=== PATIENT | female | born 1985 | race Caucasian/White ===

== ENCOUNTER → 2016-11-15 | Emergency (ER) | payer OTHER ==
[~2016-11-15] MED LIST: KETOROLAC TROMETHAMINE 15 MG/ML VIAL IVPUSH ONE; KETOROLAC TROMETHAMINE 15 MG/ML VIAL ONE; ONDANSETRON 4 MG/2 ML VIAL IVPUSH ONE; ONDANSETRON 4 MG/2 ML VIAL ONE; SODIUM CHLORIDE 1,000 ML IV STA
[2016-11-15 19:27] VITALS: BP 114/69; PULSE 89; TEMP 99.1; BMI 33.2
--- NOTE | 2016-11-15 20:11 | PDOC ---
Attending Attestation - Resident Resident Name: Hiren Medeiros - ED Attending Attestation I have performed the following: I have examined & evaluated the patient, The case was reviewed & discussed with the resident, I agree w/resident's findings & plan, Exceptions are as noted - HPI HPI: 11/16/16 00:09 The patient is a 31 year old female with significant past medical history of asthma and cholecystectomy who presents to the ED for epigastric pain, nausea and vomiting since 8am. Patient reports having 9 episodes of nonbloody vomiting. Denies diarrhea. States she tried pepto-bismol with no improvement. Patient reports her daughter was also ill with similar symptoms a few days ago and is now feeling better. The patient denies fever, chills, diaphoresis, cough, SOB, chest pain, and palpitations. PCP: Dr. Barrera - Physicial Exam PE: 11/16/16 00:09 GENERAL: Well-appearing, well-nourished. No apparent distress. HEENT: Normocephalic, atraumatic. PERRL, EOM intact. CARDIOVASCULAR: Normal S1, S2. Regular rate and rhythm. PULMONARY: Clear to auscultation bilaterally. ABDOMEN: Soft, non-distended, non-tender. EXTREMITIES: Normal ROM in all four extremities. No gross deformities. SKIN: Warm, dry. No rash NEUROLOGICAL: No focal neurological deficits. Discharge Disposition - Prescriptions Prescriptions: Ondansetron [Zofran *Odt*] 8 mg SL PRN #7 od.tablet Medical Decision Making - Medical Decision Making 11/16/16 00:10 Documentation prepared by Gillian Cotter, acting as durable medical equipment repairer for Popeye Cabello MD/.
--- NOTE | 2016-11-15 20:51 | PDOC ---
History of Present Illness - General Chief Complaint: Nausea/Vomiting Stated Complaint: Nausea/Vomiting/ABD PAIN Time Seen by Provider: 11/15/16 20:08 History Source: Patient Exam Limitations: No Limitations - History of Present Illness Initial Comments: 11/15/16 20:37 31F with pmh of cholecystectomy 5yrs ago presents to the ed with 9 episodes of vomiting and epigastric pain since 8am. Pt's daughter had a similar presentation 3 days ago and feels better now. Pt tried pepto-bismol that she promptly regurgitated. Denies blood in vomitus, rash, diarrhea, dysuria Associated Symptoms: denies: chest pain, cough, diaphoresis, malaise, rash, seizure, shortness of breath, syncope Aspirin Received prior to arrival: Yes: no aspirin today Past History - Past Medical History Allergies/Adverse Reactions: Allergies Allergy/AdvReac Type Severity Reaction Status Date / Time No Known Allergies Allergy Verified 11/15/16 19:27 Home Medications: Ambulatory Orders Albuterol Sulfate Inhaler - [Ventolin Hfa Inhaler -] 2 inh PO Q4H PRN 11/15/16 Asthma: Yes - Surgical History Cholecystectomy: Yes - Psycho/Social/Smoking Cessation Hx Suicidal Ideation: No Smoking History: Never smoked Review of Systems - Review of Systems Is the patient limited Turkish proficient: No Constitutional: Yes: Chills. No: Diaphoresis, Malaise, Night Sweats HEENTM: No: Symptoms Reported, Throat Pain, Difficulty Swallowing Respiratory: No: Cough, Shortness of Breath, Wheezing Cardiac (ROS): No: Chest Pain, Edema, Palpitations, Syncope, Chest Tightness ABD/GI: No: Abd. Pain w/ defecation, Blood Streaked Bowels, Constipated, Diarrhea, Difficulty Swallowing, Abdominal cramping (URQ pain from repeated retching) : No: Burning, Dysuria, Hematuria, Incontinence, Pain Integumentary: No: Bruising, Erythema, Pruritus, Rash Neurological: No: Headache *Physical Exam - Vital Signs Last Vital Signs Temp Pulse Resp BP Pulse Ox 99.1 F 89 18 114/69 99 11/15/16 19:24 11/15/16 19:24 11/15/16 19:24 11/15/16 19:24 11/15/16 19:24 - Physical Exam General Appearance: Yes: Nourished, Appropriately Dressed. No: Apparent Distress HEENT: positive: EOMI, MARGARITA, Normal ENT Inspection, Pharynx Normal. negative: Pale Conjunctivae Respiratory/Chest: positive: Chest Tender, Lungs Clear, Normal Breath Sounds. negative: Respiratory Distress, Rales, Rhonchi, Stridor, Wheezing Cardiovascular: positive: Regular Rhythm, Regular Rate, S1, S2. negative: Bradycardia, Tachycardia Vascular Pulses: Carotid (R): 2+, Carotid (L): 2+, Dorsalis-Pedis (R): 2+, Doralis-Pedis (L): 2+ Gastrointestinal/Abdominal: positive: Soft (Surgical scar on URQ, Epigastric tenderness.), Decreased BS, Protuberent, Rebound, Tenderness. negative: Guarding Musculoskeletal: positive: Normal Inspection Extremity: positive: Normal Capillary Refill Integumentary: positive: Normal Color, Dry, Warm. negative: Pale, Cold, Clammy , Rash, Swelling Neurologic: positive: Fully Oriented, Alert, Normal Mood/Affect, Motor Strength 5/5 Medical Decision Making - Medical Decision Making 11/15/16 20:59 31yo F with epigastric pain and vomiting since 8am, Considering viral illness, especially since daughter had similar symptoms. Ordered IV NS, Zofran, ketorolac, CBC and CMP, as well as a urinalysis and test.
[2016-11-15 21:36] LABS: BASOPHIL 0.1 % (0-2.0); EOSINOPHIL 0.7 % (0-4.5); MCH 29.4 pg (25.7-33.7); MCHC 33.7 g/dl (32.0-36.0); MEAN CELL VOLUME 87.2 fl (80-96); MEAN PLT VOLUME 10.2 fl (7.5-11.1); NEUTROPHILS 90.7 % (42.8-82.8); PLATELET COUNT 116 K/MM3 (134-434); RDW 13.2 % (11.6-15.6); WHITE BLOOD COUNT 8.3 K/mm3 (4.0-10.0)
[2016-11-15 21:43] LABS: URINE APPEARANCE CLEAR; URINE BILIRUBIN NEGATIVE (NEGATIVE); URINE BLOOD NEGATIVE (NEGATIVE); URINE COLOR YELLOW; URINE GLUCOSE (UA) NEGATIVE (NEGATIVE); URINE KETONE 2+ (NEGATIVE); URINE NITRITE NEGATIVE (NEGATIVE); URINE PROTEIN NEGATIVE (NEGATIVE); URINE UROBILINOGEN 4.0 E.U/dl E.U./dl (0.2-1.0)
[2016-11-15 21:50] LABS: URINE LEUK ESTERASE 1+ (NEGATIVE)
[2016-11-15 21:52] LABS: URINE MUCUS RARE; URINE RBC 4 /hpf (0-3); URINE WBC 4 /hpf (3-5)
== END | disposition home or self-care (01) ==
LOC: JER 19:12
PROC: 3E0333Z Introduction of Anti-inflammatory into Peripheral Vein, Percutaneous Approach (ICD-10-PCS; principal; 2016-11-15)
PROC: 3E033GC Introduction of Other Therapeutic Substance into Peripheral Vein, Percutaneous Approach (ICD-10-PCS; 2016-11-15)
DX: R10.13 Epigastric pain (principal); R11.2 Nausea with vomiting, unspecified
CPT/HCPCS: 36415; 81003; 81015; 84703; 85025; 96374; 96375; 99282-25

== ENCOUNTER 2017-06-30 18:52 | Emergency (ER) | payer OTHER ==
[2017-06-30] MEDS ORDERED: ALBUTEROL SO4 2.5/IPRATROPIUM 0.5 INH SOL 3 ML VIAL.NEB. NEB ONE ×3 (19:02→20:05)
[2017-06-30 19:03] VITALS: BP 134/81; PULSE 94; TEMP 99.8; BMI 33.2
--- NOTE | 2017-06-30 19:04 | PDOC ---
Rapid Medical Evaluation Time Seen by Provider: 06/30/17 18:59 Medical Evaluation: Allergies Allergy/AdvReac Type Severity Reaction Status Date / Time No Known Allergies Allergy Verified 11/15/16 19:27 06/30/17 18:59 The patient presents with a chief complaint of: Difficulty breathing, states that it feels like an asthma exacerbation. (+) non-productive cough. She has been hospitalized for her asthma but never been intubated. I have performed a brief in-person evaluation of this patient; Pertinent physical exam findings: ambulatory, speaking in full sentences. Lungs with course lung sounds b/l. RRR I have ordered the following: Duoneb, CXR The patient will proceed to the ED for further evaluation.
--- NOTE | 2017-06-30 19:39 | PDOC ---
History of Present Illness - General Chief Complaint: Respiratory Stated Complaint: ASTHMA Time Seen by Provider: 06/30/17 18:59 History Source: Patient Exam Limitations: No Limitations - History of Present Illness Initial Comments: 06/30/17 19:35 31 yr female with with history of asthma presents with cough chest tight since yesterday no fever. no vomiting. history of asthma no intubations. Past History - Past Medical History Allergies/Adverse Reactions: Allergies Allergy/AdvReac Type Severity Reaction Status Date / Time No Known Allergies Allergy Verified 06/30/17 18:59 Home Medications: Ambulatory Orders Prednisone [Deltasone] 40 mg PO DAILY #8 tablet 06/30/17 Asthma: Yes COPD: No - Surgical History Cholecystectomy: Yes - Suicide/Smoking/Psychosocial Hx Smoking History: Never smoked *Physical Exam - Vital Signs Last Vital Signs Temp Pulse Resp BP Pulse Ox 99.8 F H 94 H 19 134/81 97 06/30/17 19:00 06/30/17 19:00 06/30/17 19:00 06/30/17 19:00 06/30/17 19:00 - Physical Exam General Appearance: Yes: Nourished, Appropriately Dressed HEENT: positive: EOMI, MARGARITA, Normal ENT Inspection, TMs Normal, Pharynx Normal Neck: positive: Supple Respiratory/Chest: positive: Lungs Clear, Normal Breath Sounds, Decreased Breath Sounds. negative: Chest Tender Cardiovascular: positive: Regular Rhythm, Regular Rate Gastrointestinal/Abdominal: positive: Normal Bowel Sounds, Soft Musculoskeletal: positive: Normal Inspection Extremity: positive: Normal Capillary Refill, Normal Inspection, Normal Range of Motion Integumentary: positive: Normal Color, Dry, Warm Neurologic: positive: Fully Oriented, Alert, Normal Mood/Affect, Normal Response , Motor Strength 5/5 ED Treatment Course - ADDITIONAL ORDERS Additional order review: Laboratory Results 06/30/17 19:07 Urine HCG, Qual Negative - RADIOLOGY Radiograph Interpretation: 06/30/17 20:13 wet read is negative for infiltrate - Medications Given in the ED: ED Medications Discontinued Medications Generic Name Dose Route Start Last Admin Trade Name Freq PRN Reason Stop Dose Admin Albuterol/Ipratropium 1 amp 06/30/17 19:02 06/30/17 19:35 Duoneb - NEB 06/30/17 19:03 1 amp ONCE ONE Administration Medical Decision Making - Medical Decision Making 06/30/17 19:37 cc: cough for 2 days no fever no chills no vomiting uses inhaler at home no resp distress. 06/30/17 20:04 will give prednisone, duoneb tylenol CXR *DC/Admit/Observation/Transfer Diagnosis at time of Disposition: Asthma attack Qualifiers: Asthma severity: mild Asthma persistence: intermittent Qualified Code(s): J45.21 - Mild intermittent asthma with (acute) exacerbation - Discharge Dispostion Disposition: HOME Condition at time of disposition: Good - Prescriptions Prescriptions: Prednisone [Deltasone] 40 mg PO DAILY #8 tablet - Referrals - Patient Instructions Additional Instructions: follow with your doctor in 2-3 days use the inhaler as directed take tylenol 650mg every 4hrs for fever as needed next dose of prednisone tomorrow morning also take any over the counter antihistamine such as zyrtec, claritin or kg daily to help with any sneezing nasal congestion return to ER for any worsening symptoms - Post Discharge Activity
[2017-06-30] MEDS ORDERED: predniSONE 20 MG TABLET (UD) PO ONE (19:42)
[2017-06-30] MEDS ORDERED: ACETAMINOPHEN 325 MG TABLET (FP) PO ONE (19:42)
[2017-06-30] MEDS ORDERED: ACETAMINOPHEN 325 MG TABLET (FP) ONE (19:46)
[2017-06-30] MEDS ORDERED: predniSONE 20 MG TABLET (UD) ONE (19:47)
== END 2017-06-30 21:13 | disposition home or self-care (01) ==
LOC: JERFT 18:52
PROC: 3E0F7GC Introduction of Other Therapeutic Substance into Respiratory Tract, Via Natural or Artificial Opening (ICD-10-PCS; principal; 2017-06-30)
PROC: 3E0F7GC Introduction of Other Therapeutic Substance into Respiratory Tract, Via Natural or Artificial Opening (ICD-10-PCS; 2017-06-30)
DX: J45.21 Mild intermittent asthma with (acute) exacerbation (principal)
CPT/HCPCS: 71046-TC-FY; 84703; 99281-25

== ENCOUNTER 2018-04-06 18:33 | Emergency (ER) | payer OTHER ==
[2018-04-06 18:57] VITALS: BP 114/70; PULSE 89; TEMP 98.3; BMI 32.8
[2018-04-06] MEDS ORDERED: ALBUTEROL SO4 2.5/IPRATROPIUM 0.5 INH SOL 3 ML VIAL.NEB. NEB ONE ×4 (18:57→20:57)
--- NOTE | 2018-04-06 18:59 | PDOC ---
Rapid Medical Evaluation Chief Complaint: Shortness of Breath Time Seen by Provider: 04/06/18 18:57 Medical Evaluation: Allergies Allergy/AdvReac Type Severity Reaction Status Date / Time No Known Allergies Allergy Verified 06/30/17 18:59 Vital Signs Temp Pulse Resp BP Pulse Ox 98.3 F 89 16 114/70 100 04/06/18 18:55 04/06/18 18:55 04/06/18 18:55 04/06/18 18:55 04/06/18 18:55 04/06/18 18:57 I have performed a brief in-person evaluation of this patient. The patient presents with a chief complaint of: 18wks with complains of cough, nasal congestion and SOB since yesterday,. report h/o Asthma Pertinent physical exam findings: no acute respiratory distress. heart RRR. lungs CTAB I have ordered the following: duoneb The patient will proceed to the ED for further evaluation Discharge Disposition - Diagnosis SOB (shortness of breath) Acute asthma exacerbation Qualifiers: Asthma severity: mild Asthma persistence: intermittent Qualified Code(s): J45.21 - Mild intermittent asthma with (acute) exacerbation - Referrals - Patient Instructions - Post Discharge Activity
[2018-04-06] MEDS ORDERED: predniSONE 20 MG TABLET (UD) PO ONE (20:08)
[2018-04-06] MEDS ORDERED: predniSONE 20 MG TABLET (UD) ONE (20:28)
--- NOTE | 2018-04-06 21:06 | PDOC ---
History of Present Illness - General Chief Complaint: Shortness of Breath Stated Complaint: SHORTNESS OF BREATH/18 WKS Time Seen by Provider: 04/06/18 18:57 History Source: Patient Exam Limitations: No Limitations - History of Present Illness Initial Comments: 32 y/o F hx of asthma (hospitalized once, never intubated) , currently 18 weeks , LNMP 12/02/17, presents with SOB, chest tightness and mild dry cough from yesterday. Mentions sxs feel like her asthma. Tried using her Albuterol inhaler without much improvement in sxs. Denies fever, chills, body aches, abd pain, diarrhea, vaginal bleeding. Has occasional emesis which is typical for her . Denies recent travel. 04/06/18 21:00 Past History - Past Medical History Allergies/Adverse Reactions: Allergies Allergy/AdvReac Type Severity Reaction Status Date / Time No Known Allergies Allergy Verified 06/30/17 18:59 Home Medications: Ambulatory Orders Prednisone [Deltasone] 40 mg PO DAILY #8 tablet 06/30/17 Prednisone [Deltasone] 40 mg PO DAILY #8 tablet 04/06/18 Asthma: Yes COPD: No - Surgical History Cholecystectomy: Yes - Immunization History Immunization Up to Date: Yes - Suicide/Smoking/Psychosocial Hx Smoking History: Never smoked Hx Alcohol Use: No Drug/Substance Use Hx: No Substance Use Type: None Review of Systems - Review of Systems Comments:: see hpi 04/06/18 21:04 *Physical Exam - Vital Signs Last Vital Signs Temp Pulse Resp BP Pulse Ox 98.3 F 89 16 114/70 100 04/06/18 18:55 04/06/18 18:55 04/06/18 18:55 04/06/18 18:55 04/06/18 18:55 - Physical Exam General Appearance: Yes: Nourished Respiratory/Chest: positive: Lungs Clear, Normal Breath Sounds. negative: Respiratory Distress, Crackles, Rales, Rhonchi, Stridor, Wheezing Cardiovascular: positive: Regular Rhythm, Regular Rate, S1, S2. negative: Murmur Gastrointestinal/Abdominal: positive: Normal Bowel Sounds, Soft. negative: Tender, Distended, Guarding, Rebound Extremity: positive: Normal Inspection. negative: Pedal Edema, Calf Tenderness Neurologic: positive: Fully Oriented, Alert, Normal Mood/Affect Moderate Sedation - Procedure Monitoring Vital Signs: Procedure Monitoring Vital Signs Temperature 98.3 F 04/06/18 18:55 Pulse Rate 89 04/06/18 18:55 Respiratory Rate 16 04/06/18 18:55 Blood Pressure 114/70 04/06/18 18:55 O2 Sat by Pulse Oximetry (%) 100 04/06/18 18:55 ED Treatment Course - Medications Given in the ED: ED Medications Discontinued Medications Generic Name Dose Route Start Last Admin Trade Name Fahad PRN Reason Stop Dose Admin Albuterol/Ipratropium 1 amp 04/06/18 18:57 04/06/18 20:31 Duoneb - NEB 04/06/18 18:58 1 amp ONCE ONE Administration Prednisone 40 mg 04/06/18 20:08 04/06/18 20:32 Deltasone - PO 04/06/18 20:09 40 mg ONCE ONE Administration Medical Decision Making - Medical Decision Making 32 y/o F currently 18 weeks hx of asthma presents with mild asthma exacerbation. Lungs were clear prior to receiving treatment Patient was given duonebs x2 and Prednisone 40 mg. On reassessment, patient feeling improved. Bedside ultrasound shows IUP with heart tone noted (at 154 bpm). Stable for d/c 04/06/18 21:04 *DC/Admit/Observation/Transfer Diagnosis at time of Disposition: SOB (shortness of breath) Acute asthma exacerbation Qualifiers: Asthma severity: mild Asthma persistence: intermittent Qualified Code(s): J45.21 - Mild intermittent asthma with (acute) exacerbation - Discharge Dispostion Disposition: HOME Condition at time of disposition: Improved Decision to Admit order: No - Prescriptions Prescriptions: Prednisone [Deltasone] 40 mg PO DAILY #8 tablet - Referrals Referrals: Quinton Gross MD [Primary Care Provider] - 3 days - Patient Instructions Printed Discharge Instructions: DI for Asthma -- Adult Additional Instructions: Thank you for choosing [facility]. It was a pleasure taking care of you. You were seen here for asthma Take your Albuterol inhaler as needed for wheezing/shortness of breath Take the Prednisone daily as prescribed Return to the Emergency Department if your symptoms worsen or persist, you have fever, shortness of breath, chest pain, severe abdominal pain, vomiting, vaginal bleeding or other concerning symptoms. - Post Discharge Activity
== END 2018-04-06 21:20 | disposition home or self-care (01) ==
LOC: JER 18:33
PROC: 3E0F7GC Introduction of Other Therapeutic Substance into Respiratory Tract, Via Natural or Artificial Opening (ICD-10-PCS; principal; 2018-04-06)
PROC: 3E0F7GC Introduction of Other Therapeutic Substance into Respiratory Tract, Via Natural or Artificial Opening (ICD-10-PCS; 2018-04-06)
DX: O26.892 Other specified pregnancy related conditions, second trimester (principal); O99.512 Diseases of the respiratory system complicating pregnancy, second trimester; J45.21 Mild intermittent asthma with (acute) exacerbation; Z3A.18 18 weeks gestation of pregnancy
CPT/HCPCS: 99281-25; 99282-25

== ENCOUNTER 2018-09-23 23:09 | Emergency (ER) | payer OTHER ==
[2018-09-23 23:51] VITALS: PULSE 84; TEMP 97.4
--- NOTE | 2018-09-24 01:02 | PDOC ---
History of Present Illness - General Chief Complaint: Pain Stated Complaint: VAGINAL PAIN Time Seen by Provider: 09/23/18 23:09 History Source: Patient Exam Limitations: No Limitations - History of Present Illness Travel History: No Initial Comments: 09/24/18 01:04 HISTORY OF PRESENT ILLNESS: 32-year-old woman A1 who is 3 weeks status post vaginal delivery and IUD placement. Patient felt that her IUD strings were visible at her vaginal opening. Patient called the clinic with the IUD was placed and she was referred to the emergency department for evaluation. Patient reports having some vaginal pain and some dark red vaginal bleeding. She denies fevers, chills, dysuria, hematuria, rectal bleeding. No recent travel or sick contacts. PAST MEDICAL HISTORY: Denies past medical history SURGICAL HISTORY: Denies ALLERGIES: No known drug allergies REVIEW OF SYSTEMS General/Constitutional: Denies fever or chills. Denies weakness, weight change. HEENT: Denies change in vision. Denies ear pain or discharge. Denies sore throat. Cardiovascular: Denies chest pain or shortness of breath. Respiratory: Denies cough, wheezing, or hemoptysis. Gastrointestinal: Denies nausea, vomiting, diarrhea or constipation. Denies rectal bleeding. Genitourinary: Denies dysuria, frequency, or change in urination. Musculoskeletal: Denies joint or muscle swelling or pain. Denies neck or back pain. Skin and breasts: Denies rash or easy bruising. Neurologic: Denies headache, vertigo, loss of consciousness, or loss of sensation. Psychiatric: Denies depression or anxiety. Endocrine: Denies increased thirst. Denies abnormal weight change. Hematologic/Lymphatic: Denies anemia, easy bleeding, or history of blood clots. Allergic/Immunologic: Denies hives or skin allergy. Denies latex allergy. PHYSICAL EXAM General Appearance: Well-appearing, appropriately dressed. No apparent distress , no intoxication. Respiratory/Chest: Lungs CTAB. No shortness of breath, chest tenderness, respiratory distress, accessory muscle use. No crackles, rales, rhonchi, stridor , wheezing, dullness Cardiovascular: RRR. S1, S2. No JVD, murmur, bradycardia, tachycardia. Vascular Pulses: Dorsalis-Pedis (R): 2+, Dorsalis-Pedis (L): 2+ Gastrointestinal/Abdominal: Normal bowel sounds. Abdomen soft, non-distended. No tenderness or rebound tenderness. No organomegaly, pulsatile mass, guarding, hernia, hepatomegaly, splenomegaly. Lymphatic: No adenopathy, tenderness. Past History - Past Medical History Allergies/Adverse Reactions: Allergies Allergy/AdvReac Type Severity Reaction Status Date / Time No Known Allergies Allergy Verified 09/23/18 23:47 Home Medications: Ambulatory Orders Prednisone [Deltasone] 40 mg PO DAILY #8 tablet 04/06/18 Asthma: Yes COPD: No - Surgical History Cholecystectomy: Yes - Reproductive History (#): 3 Para: 2 - Immunization History Immunization Up to Date: Yes - Suicide/Smoking/Psychosocial Hx Smoking History: Unknown if ever smoked Information on smoking cessation initiated: No Hx Alcohol Use: No Drug/Substance Use Hx: No Substance Use Type: None *Physical Exam - Vital Signs Last Vital Signs Temp Pulse Resp BP Pulse Ox 97.4 F L 84 18 119/74 98 09/23/18 23:09 09/23/18 23:09 09/23/18 23:09 09/23/18 23:09 09/23/18 23:09 - Physical Exam Female Pelvic Exam: positive: normal external exam, cervical os closed, normal adnexa, vaginal bleeding (from cervical os. No pooling noted.), other (No IUD strings present in the cervical os. Unable to visualize any IUD strings or IUD in the vaginal cavity.). negative: [facility] ED Treatment Course - RADIOLOGY Radiology Studies Ordered: Category Date Time Status TRANSVAGINAL ULTRASOUND US [US] Stat Ultrasound 09/24/18 01:02 Ordered Medical Decision Making - Medical Decision Making 09/24/18 01:07 A/P: 32-year-old woman for evaluation of IUD migration Unable to visualize strings at cervical os No retained foreign body in the vaginal vault Transvaginal ultrasound to evaluate for IUD malpositioning 09/24/18 03:52 Ultrasound as read by imaging poison information specialist: Uterus is anteverted measures 11.6 cm in length. Left ovary measuring 4.4 cinders elect appears normal demonstrates normal flow. Endovaginal pelvic ultrasound IUD is noted within the endometrial canal. Endometrium is mildly prominent with likely reflects that she is recently . There are no fibroids. The right ovary measures 3.3 cm in length appears normal and temperature thermal flow. There is no significant free fluid. We'll discharge the patient home to follow-up with her GLASS INSERTER for reevaluation. I discussed the physical exam findings, ancillary test results and final diagnoses with the patient. I answered all of the patient's questions. The patient was satisfied with the care received and felt comfortable with the discharge plan and treatment plan. The patient will call their primary care physician within 24 hours to arrange follow-up and will return to the Emergency Department with any new, persistent or worsening symptoms. *DC/Admit/Observation/Transfer Diagnosis at time of Disposition: IUD (intrauterine device) in place - Discharge Dispostion Disposition: HOME Condition at time of disposition: Fair Decision to Admit order: No - Referrals - Patient Instructions Additional Instructions: Return to her skidder driver for reevaluation of ADD. Return to emergency department for any new or worsening symptoms. Thank you very much for treasonous provider emergent health care needs. - Post Discharge Activity
[2018-09-24 03:59] VITALS: BP 112/78
== END 2018-09-24 03:59 | disposition home or self-care (01) ==
LOC: JER 23:09
DX: O90.89 Other complications of the puerperium, not elsewhere classified (principal); Z30.431 Encounter for routine checking of intrauterine contraceptive device
CPT/HCPCS: 76830-TC; 99281-25

== ENCOUNTER 2024-02-14 15:40 | Inpatient (IN) | payer OTHER ==
[2024-02-14] MEDS ORDERED: SUCRALFATE 1 GM TABLET (FP) ONE (16:16)
[2024-02-14] MEDS ORDERED: FAMOTIDINE 20 MG/50 ML IVPB 20 MG/50 ML MG IVPB ONE (16:17)
[2024-02-14] MEDS ORDERED: MAG HYDROX/AL HYDROX/SIMETH 30 ML UNIT-DOSE CUP ONE (16:17)
[2024-02-14] MEDS ORDERED: SUCRALFATE 1 GM TABLET (FP) PO SCH ×2 (16:23→22:00)
[2024-02-14] MEDS: SODIUM CHLORIDE 0.9% 500 ML INFUS.BAG IV ONE ×2 (16:55→18:12)
[2024-02-14] MEDS: FAMOTIDINE 20 MG/50 ML IVPB 20 MG/50 ML MG IVPB ONE (16:55)
[2024-02-14] MEDS: MAG HYDROX/AL HYDROX/SIMETH 30 ML UNIT-DOSE CUP PO ONE (16:55)
[2024-02-14] MEDS: SUCRALFATE 1 GM TABLET (FP) PO ONE (16:55)
[2024-02-14 17:19] LABS: POTASSIUM 5.4 mmol/L (3.5-5.1)
[2024-02-14 17:21] LABS: CALCIUM 8.8 mg/dL (8.5-10.1)
[2024-02-14 17:22] LABS: ALBUMIN 3.5 g/dl (3.4-5.0); BLOOD UREA NITROGEN 9.1 mg/dL (7-18)
[2024-02-14 17:25] LABS: CREATININE 0.7 mg/dL (0.55-1.3)
[2024-02-14 17:26] LABS: BILIRUBIN,TOTAL 0.6 mg/dL (0.2-1); TOT PROT 8.2 g/dl (6.4-8.2)
[2024-02-14 17:37] LABS: BASO % 0.5 % (0-2.0); EOS % 5.2 % (0-4.5); HEMATOCRIT 39.1 % (32.4-45.2); HEMOGLOBIN 13.4 GM/dL (10.7-15.3); LYMPH % 19.4 % (8-40); MCH 29.6 pg (25.7-33.7); MCHC 34.3 g/dl (32.0-36.0); MEAN CELL VOLUME 86.3 fl (80-96); MEAN PLT VOLUME 10.1 fl (7.5-11.1); MONO % 4.4 % (3.8-10.2); NEUT % 70.5 % (42.8-82.8); PLATELET COUNT 190 10^3/uL (134-434); RBC 4.54 M/mm3 (3.60-5.2); RDW 13.1 % (11.6-15.6)
[2024-02-14] MEDS ORDERED: KETOROLAC TROMETHAMINE 30 MG/1 ML VIAL ONE (18:05)
[2024-02-14 18:09] LABS: HIV INTERPRETATION NEGATIVE (NEGATIVE)
[2024-02-14] MEDS: KETOROLAC TROMETHAMINE 30 MG/1 ML VIAL IVPUSH ONE (18:12)
[2024-02-14] MEDS ORDERED: ALBUTEROL SO4 HFA INHALER IH PRN (21:26)
[2024-02-14 23:10] LABS: URINE APPEARANCE CLEAR; URINE BILIRUBIN NEGATIVE (NEGATIVE); URINE COLOR YELLOW; URINE GLUCOSE (UA) NEGATIVE (NEGATIVE); URINE KETONE 15 mg/dl (NEGATIVE); URINE LEUK ESTERASE NEGATIVE (NEGATIVE); URINE NITRITE NEGATIVE (NEGATIVE); URINE PROTEIN NEGATIVE (NEGATIVE)
[2024-02-14 23:13] LABS: POTASSIUM 3.7 mmol/L (3.5-5.1)
[2024-02-14 23:15] LABS: CALCIUM 8.4 mg/dL (8.5-10.1)
[2024-02-14 23:16] LABS: ALBUMIN 3.4 g/dl (3.4-5.0); BLOOD UREA NITROGEN 8.6 mg/dL (7-18)
[2024-02-14 23:19] LABS: CREATININE 0.6 mg/dL (0.55-1.3)
[2024-02-14 23:20] LABS: BILIRUBIN,TOTAL 0.6 mg/dL (0.2-1)
[2024-02-14 23:37] VITALS: RESP 18; BMI 34.8
[2024-02-15] MEDS: LACTATED RINGERS SOLUTION 1,000 ML/1,000 ML INFUS.BAG IV SCH (03:02)
[2024-02-15] MEDS: ENOXAPARIN NA (PORCINE) 40 MG/0.4 ML DISP.SYRIN SQ SCH (09:00)
[2024-02-15 11:37] LABS: HEMATOCRIT 36.6 % (32.4-45.2); HEMOGLOBIN 12.6 GM/dL (10.7-15.3); MCH 29.8 pg (25.7-33.7); MCHC 34.5 g/dl (32.0-36.0); MEAN CELL VOLUME 86.3 fl (80-96); MEAN PLT VOLUME 10.2 fl (7.5-11.1); PLATELET COUNT 175 10^3/uL (134-434); RBC 4.25 M/mm3 (3.60-5.2); WHITE BLOOD COUNT 8.2 K/mm3 (4.0-10.0)
[2024-02-15 12:13] LABS: MAGNESIUM 1.8 mg/dL (1.8-2.4)
[2024-02-15 12:16] LABS: PHOSPHOROUS 2.5 mg/dL (2.5-4.9)
[2024-02-15] MEDS: PNEUMOC 20-VAL CONJ-DIP CRM/PF 0.5 ML SYRINGE IM ONE (13:22)
[2024-02-15] MEDS: ACETAMINOPHEN 325 MG TABLET (FP) PO PRN (13:29)
[2024-02-15 21:48] VITALS: PULSE 98
[2024-02-16 06:41] VITALS: BP 117/78; TEMP 96.7
[2024-02-16 08:30] LABS: BASO % 0.4 % (0-2.0); EOS % 5.8 % (0-4.5); HEMATOCRIT 36.6 % (32.4-45.2); HEMOGLOBIN 12.6 GM/dL (10.7-15.3); LYMPH % 16.6 % (8-40); MCH 29.9 pg (25.7-33.7); MCHC 34.4 g/dl (32.0-36.0); MEAN CELL VOLUME 86.8 fl (80-96); MEAN PLT VOLUME 9.6 fl (7.5-11.1); MONO % 5.1 % (3.8-10.2); NEUT % 72.1 % (42.8-82.8); PLATELET COUNT 183 10^3/uL (134-434); RBC 4.22 M/mm3 (3.60-5.2); RDW 13.1 % (11.6-15.6); WHITE BLOOD COUNT 8.2 K/mm3 (4.0-10.0)
[2024-02-16 08:46] LABS: POTASSIUM 3.7 mmol/L (3.5-5.1)
[2024-02-16 08:47] LABS: ALBUMIN 3.4 g/dl (3.4-5.0); BLOOD UREA NITROGEN 8.4 mg/dL (7-18); CALCIUM 8.7 mg/dL (8.5-10.1)
[2024-02-16 08:51] LABS: CREATININE 0.6 mg/dL (0.55-1.3)
[2024-02-16 08:53] LABS: BILIRUBIN,TOTAL 0.5 mg/dL (0.2-1); TOT PROT 7.3 g/dl (6.4-8.2)
[2024-02-16] MEDS: FLU VACCINE (FLULAVAL) PF 45 MCG/0.5 ML SYRINGE 2024-2025 IM ONE (10:59)
[2024-02-16] MEDS: PNEUMOC 20-VAL CONJ-DIP CRM/PF 0.5 ML SYRINGE IM ONE (11:18)
== END 2024-02-16 11:22 | disposition home or self-care (01) | DRG 282 ==
LOC: JER 15:40 → JERBED 19:46 → J6W 23:47
PROVIDERS: ADMIT Internal Medicine
DX: K85.90 Acute pancreatitis without necrosis or infection, unspecified (principal); K76.0 Fatty (change of) liver, not elsewhere classified; E86.0 Dehydration; J45.909 Unspecified asthma, uncomplicated; K57.90 Diverticulosis of intestine, part unspecified, without perforation or abscess without bleeding; R10.13 Epigastric pain; R11.0 Nausea; E66.9 Obesity, unspecified; Z68.34 Body mass index [BMI] 34.0-34.9, adult
CPT/HCPCS: 36415; 74177-TC; 76705-TC; 80053; 81003; 83690; 83735; 84100; 84478; 84484; 84703; 85025; 85027; 86803; 87086; 87389; 90656; 90677; 93005; 93010; 99285-25; G0008; G0009; Q9967